=== PATIENT | male | born 1980 | race Caucasian/White ===

== ENCOUNTER 2021-12-25 12:07 | Emergency (ER) | payer BC, SELFPAY ==
[2021-12-25 12:08] VITALS: BP 199/94; PULSE 90; RESP 18; TEMP 36.6; O2SAT 99; BMI 32.5
--- NOTE | 2021-12-25 12:15 | RAD_ITS ---
HISTORY: trauma, pain. TECHNIQUE: XR Elbow Min 3 Views. Number of images including paperwork: 3. COMPARISON: None. FINDINGS: OSSEOUS STRUCTURES: Small linear lucency at the coronoid process on one view. Mineralization unremarkable. JOINT SPACES: Maintained. No dislocation. SOFT TISSUES: No elevated fat pads. RAD/Elbow min 3 Views IMPRESSION: Small linear lucency of the olecranon process on one view only without joint effusion in the left elbow, favor prominent vascular groove over small nondisplaced fracture. at 1238 Reported and signed by: Luciana Ceja MD Electronically Signed: Luciana Ceja MD at 12:37 EDT ,
--- NOTE | 2021-12-25 12:15 | EX.ED.UPPERE ---
HPI History of Present Illness Chief Complaint: Upper Extremity Injury Informant: patient Narrative Narrative: Patient presents with left distal arm medial area pain. He was helping load a friend's dog into the water. It started to fall and it pulled his arm. He felt and heard kind of a tearing motion in the medial distal arm near the elbow. Its more proximal and not distal to the elbow. No numbness tingling weakness. He is not having pain in the shoulder forearm wrist or hand. No color change. Rest makes it better and palpation or motion makes it worse. PFSH PFSH Home Medications tramadol 50 mg PO Q6H PRN #10 tab 12/25/21 [Rx Last Taken Unknown] Allergy/AdvReac Type Severity Reaction Status Date / Time No Known Allergies Allergy Verified 12/25/21 12:10 Social History Smoking Status: Never smoker ROS ROS ED Gastrointestinal Gastrointestinal: Denies vomiting Musculoskeletal Musculoskeletal: Reports other Details: See history of present illness. Integumentary Denies rash Neurologic Neurologic: Denies paresthesias or weakness Hematologic/Lymphatic Hematologic/Lymphatic: Denies easy bleeding or easy bruising Allergic/Immunologic Allergic/Immunologic ED: Denies urticaria EXAM Physical Exam Const Vital Signs: 12/25/21 12:08 Temperature 97.9 F Temperature Source Temporal Pulse Rate 90 Respiratory Rate 18 Blood Pressure 199/94 H Blood Pressure Mean 129 Pulse Ox 99 Oxygen Delivery Method Room Air Positive well nourished and well developed General Appearance ED: well developed and NAD; Negative for cyanotic or diaphoretic HEENT Reports moist mucous membranes normocephalic Chest Wall inspection of chest normal Resp normal respiratory effort Cardio regular rate GI non-tender Palpation: soft Extremity Extremity Narrative: Patient has some tenderness both medially and laterally at the elbow but mostly medially. More of his tenderness is just above this area. He is currently in a sling along with a T-shirt and a sweatshirt. We are going to have these removed so we can get better evaluation. 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 Pulses and capillary refill is normal. There is no tenderness in other areas from the shoulder on down. Neuro no sensory deficits noted Sensorium / Orientation: alert Motor Exam: strength 5/5 throughout Psych mental status grossly normal Skin Rashes: no rashes MDM MDM MDM Narrative Medical decision making narrative: X-rays show a small linear lucency of the olecranon process but only seen on one view. And there is no joint effusion. The considerations are possible small nondisplaced fracture versus a vascular groove. We did further examination. Patient has tenderness at the distal bicep and a little bit where the bicipital aponeurosis inserts. When I have him supinate the arm it does cause pain. Pronation also hurts. He seems to have slight relative shortening of the bicep compared to his right unaffected side. This makes me suspicious of a bicep insertional tear. No indication of tenderness pain or bicep origin tear. This can be followed up. This patient is from [place] and will see orthopedic surgeon in [place]. I will give him a name down here just in case. I will asked that his images be placed on [email or web address] to allow access from the [facility] system. I will get him a few tramadol for pain. He already takes meloxicam. We discussed icing. We will place him in a sling. I already discussed motion of the wrist and shoulder to prevent stiffness. Because of the questionable fracture were not going to have him move the elbow much. I also notified him that they may treat this conservatively. However, it still needs follow-up. Of note, I do not have any discharge instructions for tendon tear or rupture. So I am giving him information about the bicep tendinitis. However I have talked to him about his actual diagnosis. Discharge Plan Triage Chief Complaint: Upper Extremity Injury ED Provider: Garland Covarrubias Dx/Rx/DC Orders Clinical Impression: Traumatic partial tear of biceps tendon Instructions: Biceps Tendonitis Distal Prescriptions: New tramadol 50 mg tablet 50 mg PO Q6H PRN (Reason: pain) Qty: 10 RF: 0 Referrals: [facility] [Other] Dante Weber DO [STAFF PHYSICIAN] - As soon as possible Disposition Disposition: Home, Self Care
== END 2021-12-25 13:48 | disposition home or self-care (01) ==
PROVIDERS: Emergency Provider Emergency Medicine; Visit Provider Emergency Medicine
DX: S46.202A Unspecified injury of muscle, fascia and tendon of other parts of biceps, left arm, initial encounter (principal); X50.9XXA Other and unspecified overexertion or strenuous movements or postures, initial encounter; Y93.K9 Activity, other involving animal care; Y99.9 Unspecified external cause status; Y92.9 Unspecified place or not applicable
CPT/HCPCS: 73080; 99283